=== PATIENT | female | born 2000 | race Caucasian/White ===

== ENCOUNTER 2021-05-28 12:59 | Emergency (ER) | payer SELFPAY ==
[~2021-05-28] VITALS: Ht 162.6 cm; Wt 60.5 kg
[2021-05-28 13:01] VITALS: BP 130/84
== END 2021-05-28 19:48 | disposition left against medical advice (07) ==
LOC: M ED 12:59
DX: Z53.21 Procedure and treatment not carried out due to patient leaving prior to being seen by health care provider (principal)